=== PATIENT | male | born 1975 | race Two or more races ===

== ENCOUNTER 2019-08-30 16:50 | Emergency (ER) | payer OTHER ==
[2019-08-30 16:56] VITALS: BP 168/92; PULSE 100; TEMP 97.5; BMI 30.6
--- NOTE | 2019-08-30 18:07 | PDOC ---
History of Present Illness - General Chief Complaint: Pain Stated Complaint: ABD PAIN Time Seen by Provider: 08/30/19 17:27 History Source: Patient Exam Limitations: No Limitations - History of Present Illness Initial Comments: 08/30/19 17:59 Patient is a 44 year old male with h/o HTN c/o epigastric pain x 2 weeks. He describes the pain as a burning, occasional stabbing, intermittent 7/10 which his worse with eating spicy food, and when he gets stressed out. He has been having a lot of abd bloating and burping. Patient states for the past 2 weeks he has been very stressed. He has been using Zantac and Fe[place] with some relief. PMD: Dr. Mcdowell PMHX: as above PSOCHX: neg etoh, drug, cig ALL: nkda GENERAL/CONSTITUTIONAL: [No fever or chills. No weakness. No weight change.] HEAD, EYES, EARS, NOSE AND THROAT: [No change in vision. No ear pain or discharge. No sore throat.] CARDIOVASCULAR: [No chest pain or shortness of breath.] RESPIRATORY: [No cough, wheezing, or hemoptysis.] GASTROINTESTINAL: [No nausea, vomiting, diarrhea or constipation. No rectal bleeding.] GENITOURINARY: [No dysuria, frequency, or change in urination.] MUSCULOSKELETAL: [No joint or muscle swelling or pain. No neck or back pain.] SKIN AND BREASTS: [No rash or easy bruising.] NEUROLOGIC: [No headache, vertigo, loss of consciousness, or loss of sensation.] PSYCHIATRIC: [No depression or anxiety.] ENDOCRINE: [No increased thirst. No abnormal weight change.] HEMATOLOGIC/LYMPHATIC: [No anemia, easy bleeding, or history of blood clots.] ALLERGIC/IMMUNOLOGIC: [No hives or skin allergy. No latex allergy.] GENERAL: [The patient is awake, alert, and fully oriented, in no acute distress. ] HEAD: [Normal with no signs of trauma.] EYES: [Pupils equal, round and reactive to light, extraocular movements intact, sclera anicteric, conjunctiva clear.] ENT: [Ears normal, nares patent, oropharynx clear without exudates. Moist mucous membranes.] NECK: [Normal range of motion, supple without lymphadenopathy, JVD, or masses.] LUNGS: [Breath sounds equal, clear to auscultation bilaterally. No wheezes, and no crackles.] HEART: [Regular rate and rhythm, normal S1 and S2 without murmur, rub.] ABDOMEN: [Soft, (+) tenderness epigastrum, normoactive bowel sounds. No guarding, no rebound. No masses.] EXTREMITIES: [Normal range of motion, no edema. No clubbing or cyanosis. No cords, erythema, or tenderness.] NEUROLOGICAL: [Cranial nerves II through XII grossly intact. Normal speech, normal gait.] PSYCH: [Normal mood, normal affect.] SKIN: [Warm, Dry, normal turgor, no rashes or lesions noted.] Past History - Past Medical History Allergies/Adverse Reactions: Allergies Allergy/AdvReac Type Severity Reaction Status Date / Time No Known Allergies Allergy Verified 08/30/19 16:56 Home Medications: Ambulatory Orders NK [No Known Home Medication] 08/30/19 COPD: No HTN: Yes - Psycho Social/Smoking Cessation Hx Smoking History: Never smoked Information on smoking cessation initiated: No *Physical Exam - Vital Signs Last Vital Signs Temp Pulse Resp BP Pulse Ox 97.5 F L 100 H 18 168/92 99 08/30/19 16:53 08/30/19 16:53 08/30/19 16:53 08/30/19 16:53 08/30/19 16:53 Medical Decision Making - Medical Decision Making 08/30/19 17:59 Patient is a 44 year old male with h/o HTN c/o epigastric pain x 2 weeks. He describes the pain as a burning, occasional stabbing, intermittent 7/10 which his worse with eating spicy food, and when he gets stressed out. He has been having a lot of abd bloating and burping. Patient states for the past 2 weeks he has been very stressed. He has been using Zantac and [place] with some relief. He has been eating a healthy diet. Denies nausea, vomiting, fever, chills. Symptoms consitent with gastritis. will reassure patient inst to continue antiacids, ppi GI consult given. I discussed the physical exam findings, ancillary test results and final diagnoses with the patient. I answered all of the patient's questions. The patient was satisfied with the care received and felt comfortable with the discharge plan and treatment plan. The Patient agrees to follow up with the primary care physician within 24-72 hours. Discharge - Discharge Information Problems reviewed: Yes Clinical Impression/Diagnosis: Epigastric pain Condition: Stable Disposition: HOME - Follow up/Referral Referrals: ON STAFF,NOT [Primary Care Provider] - Indy Santana DO [Staff Physician] - - Patient Discharge Instructions Patient Printed Discharge Instructions: DI for Gastritis Additional Instructions: Your Discharge Instructions: You must call primary care physician within 24 hours to arrange follow-up. Return to the Emergency Department with any new, persistent or worsening symptoms, for fever, chills, SOB, dizziness or any other concerning changes that may occur. Continue with a low acid diet, Zantac, Fe[place], Maalox. 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 - Post Discharge Activity
== END 2019-08-30 18:12 | disposition home or self-care (01) ==
LOC: JER 16:50
DX: R10.13 Epigastric pain (principal); I10 Essential (primary) hypertension
CPT/HCPCS: 99282-25